=== PATIENT | female | born 1965 | race Caucasian/White ===

== ENCOUNTER 2017-02-26 08:29 | Day surgery (SDC) | payer OTHER ==
--- NOTE | 2017-02-26 08:02 | HP ---
DATE OF SURGERY: 02/16/2017 HISTORY OF PRESENT ILLNESS: The patient is a 52 year-old with no prior colonoscopy with bright red blood per rectum lasted only a few days but not currently. No pain. No change in bowel movements. History of rectal bleeding and she had been in recently but also in need of screening colonoscopy as she has not had one previously. PAST MEDICAL HISTORY: She denies any chronic illnesses. PAST SURGICAL HISTORY: None. MEDICATIONS: None. ALLERGIES: NKDA. FAMILY HISTORY: Cancer but negative for colon cancer in her mother. Her father with diabetes. SOCIAL HISTORY: One pack smoker per week but reports occasional alcohol use denies abuse. REVIEW OF SYSTEMS: Twelve systems reviewed per admission assessment. No chest pain or palpitations other systems negative or noncontributory as above and per preadmission questionnaire. PHYSICAL EXAMINATION: GENERAL: No acute distress. HEENT: Sclerae nonicteric. NECK: No JVD. CHEST: Equal excursion, nonlabored breathing. CVS: Regular rate and rhythm. ABDOMEN: Soft. No peritoneal signs. EXTREMITIES: No significant edema. NEURO: Alert, moving extremities symmetrically. No gross motor deficits noted. RECTAL: Deferred timed to endoscopy exam. IMPRESSION: Need for screening colonoscopy as well as history of transient episode of rectal bleeding. She is in need of colonoscopy. She is shown the risk sheet and explained the procedure in detail but not limited to bleeding, infection, small risk of bowel injury or perforation possibly requiring open procedure, small risk of missed or nondiagnosis or incomplete exam possibly requiring barium enema, other studies or procedures, general risk of anesthesia or sedation but not limited to. She understands all the above but not limited to, and will proceed with outpatient colonoscopy under MAC anesthesia.
[2017-02-26] MEDS ORDERED: Versed 2 MG/2 ML Injection IV ONE (08:30)
[2017-02-26] MEDS ORDERED: DIPRIVAN 200 MG/20 ML IV ONE (08:30)
[2017-02-26] MEDS ORDERED: Lactated Ringers 1,000 ML IV SCH ×2 (09:00→10:00)
[2017-02-26] MEDS ORDERED: Lactated Ringers 1,000 ML IV ONE (10:32)
[2017-02-26 14:11] VITALS: O2SAT 100
[2017-02-26 14:15] VITALS: BP 151/68; PULSE 77
--- NOTE | 2017-02-27 10:13 | OP ---
SURGERY DATE/TIME: 02/26/2017 1006 PREOPERATIVE DIAGNOSIS: Turning 52 next month need screening colonoscopy. Prior history of rectal bleeding resolved. POSTOPERATIVE DIAGNOSES: 1) Sessile smooth polypoid reaction ascending colon, second small raised lesion ascending colon. 2) Small internal and external hemorrhoids. 3) Tortuous colon. 4) Poor right colon prep limiting the exam. PROCEDURES: 1) Colonoscopy to terminal ileum. 2) Retrograde ileoscopy. 3) Hot biopsy small raised lesion ascending colon. 4) Multiple hot biopsies of separate sessile raised lesion polypoid reaction ascending colon with ink spot tattooing of location. Again it was broad base and sessile. It was not safely to completely remove in this endoscopic setting. SURGEON: Dr. iNle Cedeño. ANESTHESIA: MAC. ESTIMATED BLOOD LOSS: Minimal. INDICATIONS: As noted above. Risks and benefits explained in detail but not limited to and consent obtained. DESCRIPTION OF PROCEDURE AND FINDINGS: The patient is taken to the operating room. MAC anesthesia introduced. After official time out and no disagreement with planned procedure, digital rectal exam did not reveal any rectal masses. Video colonoscope inserted and passed up through the colon. It was quite tortuous. Carefully navigating up through the sigmoid, descending and transverse colon. With external pressure and positioning on her back the scope was able to be passed around to the ascending colon, in the cecum and into the terminal ileum. Retrograde ileoscopy was grossly unremarkable. The scope is pulled back. Prep in the right colon was somewhat poor with some liquidy semisolid stool limiting the exam for small lesions. There was a sessile what seemed to be more proximal in the right lower quadrant in the ascending colon lesion on a fold this had a little bit of a polypoid reaction but it was sessile and could not safely be completely all removed. Multiple hot and cold biopsies were taken of this for path. Good hemostasis noted. Given the lesion it was marked with ink spot tattoo to selam the location. Additionally, she had another very vague small raised lesion versus hyperplastic lesion in the more distal ascending colon removed with hot biopsy forceps. Good hemostasis noted. Otherwise the scope was slowly and carefully withdrawn. There were no signs of any other large polyps, masses or obstructing lesions. She did have some small internal and external hemorrhoids with diverticula. The scope is withdrawn. There were no immediate complications. There was no family available to discuss the findings with. It should be noted that the sessile lesion if this is truly adenomatous she might benefit from removing this in surgical fashion but if it is other than adenomatous may need to consider whether worthwhile to short term follow up colonoscopy. Either way the patient tolerated the procedure well. There were no immediate complications. Again, it was marked with ink spot tattooing.
== END 2017-02-26 12:10 | disposition home or self-care (01) ==
LOC: SDC 08:29
PROVIDERS: ATTEND Surgery
PROC: 0DJD8ZZ Inspection of Lower Intestinal Tract, Via Natural or Artificial Opening Endoscopic (ICD-10-PCS; principal; 2017-02-26)
PROC: 0DBK8ZX Excision of Ascending Colon, Via Natural or Artificial Opening Endoscopic, Diagnostic (ICD-10-PCS; 2017-02-26)
PROC: 3E0H8GC Introduction of Other Therapeutic Substance into Lower GI, Via Natural or Artificial Opening Endoscopic (ICD-10-PCS; 2017-02-26)
DX: K63.9 Disease of intestine, unspecified (principal); K64.4 Residual hemorrhoidal skin tags; K64.8 Other hemorrhoids; Q43.8 Other specified congenital malformations of intestine; K92.1 Melena
CPT/HCPCS: 00810; J2250; J2704

== ENCOUNTER 2017-04-16 08:57 | Inpatient (IN) | payer OTHER ==
--- NOTE | 2017-04-16 08:20 | HP ---
DATE OF SURGERY: 04/16/2017 HISTORY OF PRESENT ILLNESS: Large flat polyp ascending colon risk of not be safely completely removed endoscopically given the large flat nature. PAST MEDICAL HISTORY: She denies any chronic illnesses. PAST SURGICAL HISTORY: Colonoscopy in the past, descending colon lesion. She had multiple biopsies taken but it was felt not able to completely safely remove endoscopically. MEDICATIONS: None on a regular basis. ALLERGIES: NKDA. FAMILY HISTORY: Cancer, diabetes. SOCIAL HISTORY: One pack per week smoker, occasional alcohol use denied abuse. REVIEW OF SYSTEMS: Twelve systems reviewed per admission assessment. No chest pain or palpitations other systems negative or noncontributory as above and per preadmission questionnaire. PHYSICAL EXAMINATION: GENERAL: No acute distress. HEENT: Sclerae nonicteric. NECK: No JVD. CHEST: Equal excursion, nonlabored breathing. CVS: Regular rate and rhythm. ABDOMEN: Soft, nontender. No peritoneal signs. EXTREMITIES: No significant edema. NEURO: Alert, oriented, moving extremities symmetrically. No gross motor deficits noted. RECTAL: Exam small internal and external hemorrhoids. No palpable masses on endoscopic exam. IMPRESSION: Large flat polyp ascending colon risk of not be safely completely removed endoscopically given the large flat nature. A couple cold biopsies were taken. The polyp was marked with ink spot tattooing. It was felt it would be safest to remove it surgically. It came back tubular adenomatous on biopsy. It was felt that it would be safest to proceed surgically with surgical resection and the patient preferred this rather than repeated multiple endoscopies. It was felt to be moderately high risk for progression to malignancy over time as it cannot be completely safely removed endoscopically. Therefore I felt the patient would benefit from surgical resection. I felt she is a candidate for laparoscopic assisted possible hand-assist, possible partial colectomy, possible open same day admit. General risk of bleeding or infection, small risk of trocar injury or hernia, small risk of bowel, bladder, ureter or blood vessel injury possibly requiring procedures, risk of aches, pains, burning or numbness, risk of wound complications, hernia or dehiscence, risk of anastomotic complications, bleeding, leaking fistula, abscess formation possibly requiring other procedures, ongoing morbidity, general risk of anesthesia, deep venous thrombosis, pulmonary embolism, pneumonia, postoperative risk of ileus, risk of adhesion or obstruction down the road, general risk of anesthesia, deep venous thrombosis, pulmonary embolism, pneumonia but not limited to. She understands all of the above but not limited to, will proceed with large sessile tubular adenoma that could not be resected or removed endoscopically, possibly benefit from surgical resection, laparoscopic assisted, possible hand-assist partial colectomy, possible open.
[~2017-04-16 08:57] MED LIST: Lactated Ringers 1,000 ML IV ONE; MEFOXIN 2 GM PREMIX** 2 GM/50 ML ML IV SCH; Sensorcaine 0.25% 10 ML ONE
[2017-04-16] MEDS ORDERED: BRIDION 200MG/2ML IV ONE (09:10)
[2017-04-16] MEDS ORDERED: DIPRIVAN 200 MG/20 ML IV ONE (09:10)
[2017-04-16] MEDS ORDERED: Naropin 0.5% 30 ML VIAL IJ ONE (09:10)
[2017-04-16] MEDS ORDERED: Astramorph-Pf 5 MG/10 ML IV ONE (09:10)
[2017-04-16] MEDS ORDERED: Versed 2 MG/2 ML Injection IV ONE (09:10)
[2017-04-16] MEDS ORDERED: EPINEPHRINE 1MG/ML AMP IV ONE (09:10)
[2017-04-16] MEDS ORDERED: Zemuron 100 MG/10 ML IV ONE (09:10)
[2017-04-16] MEDS ORDERED: SUBLIMAZE 250 MCG/5 ML IV ONE (09:10)
[2017-04-16] MEDS ORDERED: Decadron 4 MG INJ IV ONE (09:10)
[2017-04-16] MEDS ORDERED: Zofran 4 MG/2 ML VIAL IV ONE (09:10)
[2017-04-16] MEDS ORDERED: ENTEREG 12 MG PO ONE (09:30)
[2017-04-16] MEDS ORDERED: Valium 5 MG PO PRN (09:30)
[2017-04-16] MEDS ORDERED: Lactated Ringers 1,000 ML IV ONE ×2 (09:49→11:04)
[2017-04-16] MEDS ORDERED: MEFOXIN 2 GM PREMIX** 2 GM/50 ML ML IV ONE (09:49)
[2017-04-16] MEDS: Lactated Ringers 1,000 ML IV SCH ×2 (09:53→11:09)
[2017-04-16 12:15] LABS: Appearance HAZY (CLEAR); Bilirubin NEGATIVE (NEGATIVE); Glucose NEGATIVE (NEGATIVE); Ketones TRACE (NEGATIVE); Leukocyte Esterase TRACE (NEGATIVE); Nitrite NEGATIVE (NEGATIVE); Protein,Urine Dip TRACE (Negative); Urobilinogen NORMAL mg/dL (0-1)
[2017-04-16 12:16] LABS: Blood 250 Ery/ul (0-5)
[2017-04-16 12:30] LABS: Bacteria MODERATE /HPF (NEGATIVE); Epithelial Cells FEW /HPF (FEW); Mucus SLIGHT /HPF (NEGATIVE)
[2017-04-16] MEDS ORDERED: Zofran 4 MG/2 ML VIAL ONE (15:06)
[2017-04-16] MEDS ORDERED: SUBLIMAZE 100 MCG/2 ML ONE (15:06)
[2017-04-16] MEDS ORDERED: DEMEROL 50 MG IV PRN (16:13)
[2017-04-16] MEDS ORDERED: Zofran 4 MG/2 ML VIAL IV PRN (16:13)
[2017-04-16] MEDS ORDERED: Nubain 10 MG/ML IV PRN (16:13)
[2017-04-16] MEDS ORDERED: Narcan 0.4 MG/ML IV PRN (16:13)
[2017-04-16] MEDS ORDERED: PERCOCET TABLET 5/325MG PO PRN (16:13)
[2017-04-16] MEDS ORDERED: Sodium Chloride 0.9% 10 ML FLUSH Syringe IJ PRN (16:13)
[2017-04-16] MEDS ORDERED: CLARITIN 10 MG PO PRN (16:13)
[2017-04-16] MEDS ORDERED: HOLD NARCOTIC ANALGESICS AND SEDATIVES X24 HR MC PRN (16:49)
[2017-04-16] MEDS: D5W/0.45NS W/ 20mEq KCl 1000 ML 1,000 ML IV SCH (17:25)
[2017-04-16] MEDS: MEFOXIN 1 Gm/ D5W 50 Ml** 1 G/50 ML ML IV SCH ×2 (17:26→23:55)
[2017-04-16] MEDS: Sodium Chloride 0.9% 10 ML FLUSH Syringe IJ SCH (22:00)
[2017-04-17] MEDS: MEFOXIN 1 Gm/ D5W 50 Ml** 1 G/50 ML ML IV SCH (05:57)
[2017-04-17] MEDS: Sodium Chloride 0.9% 10 ML FLUSH Syringe IJ SCH ×2 (05:59→18:17)
[2017-04-17 06:00] LABS: Hematocrit 35.8 % (35-47); Hemoglobin 11.7 gm/dl (12.0-16.0); Mean Cell Volume 92.5 fl (78-100); Mean Corpuscular Hemoglobin 30.2 pg (26-32); Mean Corpuscular Hgb Concent. 32.7 g/dl (32-36); Mean Platelet Volume 9.9 fl (6-9.5); Platelet Count 272 K/mm3 (150-450); Red Blood Count 3.87 M/mm3 (4.1-5.4); Red Cell Distribution Width 12.7 % (11.5-14.0); White Blood Count 15.5 K/mm3 (4.0-10.5)
[2017-04-17 06:19] LABS: ANION GAP 10.5 MEQ/L (5-15); BLOOD UREA NITROGEN 7 mg/dL (9-20); CHLORIDE 106 mEq/L (98-107); Calcium 8.4 mg/dL (8.5-10.1); Carbon Dioxide 26.7 mEq/L (21-32); Creatinine 1 0.77 mg/dl (0.55-1.30); EST GLOMERULAR FILTRATION RATE > 60 ML/MIN; Glucose 142 MG/DL (70-110); Potassium 4.5 mEq/L (3.5-5.1); SODIUM 139 mEq/L (136-145)
--- NOTE | 2017-04-17 08:21 | OP ---
SURGERY DATE/TIME: 04/16/2017 1125 PREOPERATIVE DIAGNOSIS: History of flat sessile tubular adenoma ascending colon unable to be safely removed endoscopically, multiple biopsies showing tubular adenoma, need for surgical resection. POSTOPERATIVE DIAGNOSIS: History of sessile tubular adenoma ascending colon unable to be safely removed endoscopically, multiple biopsies showing tubular adenoma, need for surgical resection. PROCEDURE: Laparoscopic assisted right colectomy with primary ileal transverse colic reanastomosis. SURGEON: Dr. Nile Cedeño. BLAST FURNACE TENDER: Jennifer Savage, Medical Student III. ANESTHESIA: General. ESTIMATED BLOOD LOSS: Minimal. INDICATIONS: As noted above. She had this flat sessile polyp that required piecemeal biopsy that was felt could not be safely resected endoscopically and felt it needed surgical resection. She had a short right colon, right colectomy whether dysplasia or malignancy this was felt the safest approach. Risks and benefits explained in detail and not limited to and consent obtained. She was explained the procedure of resection. Risk of progression of malignancy depending on path. Consent had been obtained. DESCRIPTION OF PROCEDURE AND FINDINGS: The patient is taken to the operating room. General anesthesia introduced. Abdomen was prepped and draped in usual sterile fashion. After official time out and no disagreement with planned procedure, a transverse incision made infraumbilical area. Fascia grasped and pulled up. Veress needle inserted and tested with saline. Pneumoperitoneum accomplished. Opening pressure 0 to 15. A 5 mm bladeless port and camera inserted without difficulty followed by right lower quadrant 5 mm port. Left upper 5 mm port. Lower midline 5 mm port. The patient required laparoscopic lysis of adhesions, had several omental adhesions. Otherwise the very extensive omental adhesions that required laparoscopic lysis of adhesions with a combination of sharp dissection with the scissors and LigaSure device sealing the vascular adhesions directly on the abdominal wall well away from the viscera. This allowed the lower midline 5 mm port to be placed. Once this was accomplished she was thin enough the ureter could be visualized on the right pelvic side wall. The peritoneum was carefully incised allowing the terminal ileum to be mobilized upwards with the white line of [place] side is laterally and the right colon was able to be mobilized medially and this took some time but slowly and carefully accomplished staying well away from the visible ureter protecting the retroperitoneum. It was peristalsing quite well. At this point the omentum had also been taken off the transverse colon as there was only a very short segment of right colon. It was felt right colectomy would be the best option. The blue dye was noted. The flap had been marked previously endoscopically to confirm the location. At this point it was felt the colon had been mobilized. The ileocolic vessel created to allow to release the mesentery. There was actually blue dye on the lymph nodes along this ileocolic vessel from prior tattoo. It was felt it was time to proceed with anastomosis. A transverse incision was made in right upper quadrant. Peritoneum entered sharply. Pneumoperitoneum decompressed temporarily. The right colon had been mobilized and pulled up into the wound. The terminal ileum is transected with a STORM stapler. Mesentery taken down ligating with LigaSure ligating the main ileocolic vessel with 0 Vicryl suture ligature allowing the lymph node to be sent as a specimen and this was accomplished. Again as there was a very short right colon segment it was felt there was no benefit just doing ileus. It was felt the chance that if there was any dysplasia or malignancy on this flat polyp it was felt best to go ahead and complete the right colon and there was a little extra colon taken. The STORM stapler is fired across the transverse colon also including the right colic vessel ligating with 0 Vicryl suture ligature this had all been mobilized anterior to the duodenum. Finally the ileocolic vessel taken anterior well away from the retroperitoneal structures taking down the residual mesocolon anterior to duodenum. The specimen is passed off. It was opened on the back table. The area had been tattooed and the flat polyp had several biopsies. A [id number] anastomosis created posterior level to top with PDS, [id number] staple anastomosis created. The wound was closed with chyna to reinforce staple line and this was able to be visualized and over sewn with running 3-0 PDS. Good hemostasis was then noted. A nice tension-free viable anastomosis. The staple line was closed with TA stapler and over sewn with 3-0 PDS. Mesenteric defect then closed with 3-0 PDS. Good hemostasis noted. A nice patent, viable tension-free anastomosis with omentum laid on top. Copious amount of irrigation irrigating until clear. Good hemostasis noted. At this point we carefully inspected the abdominal cavity and irrigated out. Wound protector was then carefully inserted. The abdomen re-insufflated. Carefully inspected the anastomotic area in a tension-free and viable. Copious amount of irrigation irrigating until clear. Lysis of adhesions had been accomplished, inspected and appeared to have good hemostasis. At this point pneumoperitoneum decompressed. Port removed. MICHELLE drain placed along the right gutter placed at bulb suction and secured with PDS suture to the skin through anterior port site. Buttressing up in a tension-free viable anastomosis. The mesenteric defect had been closed. Good hemostasis noted. At this point pneumoperitoneum decompressed. Ports have been removed. MICHELLE drain secured. The fascia small incision was then closed with running looped 0 PDS. Subcu irrigated out. Skin stapled. Little pieces of Iodoform packing the staple line to allow for any drainage. The patient tolerated the procedure well. There were no immediate complications.
[2017-04-17] MEDS: MORPHINE SULFATE 2 MG INJ IV PRN ×3 (08:54→15:19)
[2017-04-17] MEDS: ENTEREG 12 MG PO SCH ×2 (09:21→20:59)
[2017-04-17] MEDS: D5W/0.45NS W/ 20mEq KCl 1000 ML 1,000 ML IV SCH (09:22)
[2017-04-17] MEDS: ENOXAPARIN SODIUM SQ SCH (09:22)
[2017-04-17] MEDS: NORCO 5/325 MG PO PRN ×3 (13:23→22:24)
[2017-04-17] MEDS ORDERED: Zofran 4 MG/2 ML VIAL IVIM PRN (16:00)
[2017-04-18] MEDS: D5W/0.45NS W/ 20mEq KCl 1000 ML 1,000 ML IV SCH ×2 (03:28→18:48)
[2017-04-18] MEDS: NORCO 5/325 MG PO PRN ×3 (10:33→18:48)
[2017-04-18] MEDS: ENOXAPARIN SODIUM SQ SCH (10:34)
[2017-04-18] MEDS: ENTEREG 12 MG PO SCH ×2 (10:36→21:55)
[2017-04-18] MEDS: MORPHINE SULFATE 2 MG INJ IV PRN (13:30)
[2017-04-18] MEDS: PROVENTIL 2.5 MG/3 ML NEB IH PRN (20:20)
[2017-04-19] MEDS: MORPHINE SULFATE 2 MG INJ IV PRN (03:19)
[2017-04-19] MEDS: NORCO 5/325 MG PO PRN ×2 (04:34→13:54)
[2017-04-19] MEDS: PROVENTIL 2.5 MG/3 ML NEB IH PRN (08:01)
[2017-04-19] MEDS: ENOXAPARIN SODIUM SQ SCH (09:55)
[2017-04-19] MEDS: ENTEREG 12 MG PO SCH (09:55)
[2017-04-19 11:27] VITALS: BP 126/73; PULSE 71; O2SAT 94
--- NOTE | 2017-04-30 15:06 | DS ---
ADMISSION DIAGNOSIS: Flat sessile high risk polyp that could not be completely removed endoscopically and needed resection right colon. DISCHARGE DIAGNOSIS: FLAT SESSILE HIGH RISK POLYP THAT COULD NOT BE COMPLETELY REMOVED ENDOSCOPICALLY AND NEEDED RESECTION RIGHT COLON. PATH PENDING. PROCEDURE: Laparoscopic assisted right colectomy with primary reanastomosis. HOSPITAL COURSE: For details see operative note, admission history and physical. The patient was admitted post-operatively for pain control, continued on Entereg protocol. Incision remained clean and intact. Radha were gradually advanced. MICHELLE was clear. Pain control improved. Her bowel function returned. Her diet was advanced. She tolerated diet, moving her bowels. She had good pain control on oral pain medications. It was felt she could be discharged home on 04/19/2017. Discharged home in good condition. Follow up in the office the following week. Avoid any heavy lifting for six weeks. Diet as tolerated. She has a prescription for [facility] for pain medication. She is to resume home medications.
== END 2017-04-19 16:17 | disposition home or self-care (01) | DRG 331 ==
LOC: MED SURG 08:57 → EDSTATUS 14:20
PROVIDERS: ADMIT Surgery; ATTEND Surgery
PROC: 0DBK0ZZ Excision of Ascending Colon, Open Approach (ICD-10-PCS; principal; 2017-04-16)
DX: D12.2 Benign neoplasm of ascending colon (principal); Z86.010 Personal history of colon polyps; Z87.891 Personal history of nicotine dependence
CPT/HCPCS: 00790; 36415; 62322; 64488; 76937; 76942; 80048; 81000; 85027; 87086; 88309; 94640; 94760; J0171; J0694; J1100; J1650; J2250; J2270; J2274; J2405; J2704; J2795; J3010; L0625; A9270-GY

== ENCOUNTER 2019-06-16 09:59 | Day surgery (SDC) | payer OTHER ==
--- NOTE | 2019-06-16 08:14 | HP ---
DATE OF SURGERY: 06/16/2019 HISTORY OF PRESENT ILLNESS: The patient is a 54 year-old with no change in bowel movements, no abdominal pain. She had a little bit of rectal bleeding in the past but not currently. She has history of tubular adenoma and serrated adenomas in the past, in need of follow up screening colonoscopy. PAST MEDICAL HISTORY: She denies any chronic illnesses. PAST SURGICAL HISTORY: She has history of laparoscopic assisted right colectomy with primary transverse colic anastomosis with a large sessile polyp that could not be safely removed endoscopically. MEDICATIONS: None on a regular basis. ALLERGIES: NKDA. FAMILY HISTORY: Cancer, diabetes. SOCIAL HISTORY: No smoking or alcohol abuse. REVIEW OF SYSTEMS: Fourteen systems reviewed. No chest pain or palpitations other systems negative or noncontributory as above and per preadmission questionnaire. PHYSICAL EXAMINATION: GENERAL: No acute distress. HEENT: Sclerae nonicteric. NECK: No JVD. CHEST: Clear to auscultation. CVS: Regular rate and rhythm. ABDOMEN: Soft. No peritoneal signs. EXTREMITIES: No significant edema. NEURO: Alert, oriented, moving extremities symmetrically. No gross motor deficits noted. RECTAL: Deferred timed to endoscopy exam. IMPRESSION: History of large sessile polyp requiring removal surgically. Prior history of tubular adenoma. She is in need of follow up colonoscopy at this point. Risks and benefits explained in detail but not limited to bleeding or infection, risk of bowel injury or perforation possibly requiring open procedure, risk of missed or nondiagnosis or incomplete exam possibly requiring barium enema, other studies or procedures, general risk of anesthesia or sedation, risk of bowel prep but not limited to. She understands and agrees to the planned procedure, will proceed with follow up screening colonoscopy.
[~2019-06-16 09:59] MED LIST changes: -Lactated Ringers 1,000 ML IV ONE; +Lactated Ringers 1,000 ML IV SCH; -MEFOXIN 2 GM PREMIX** 2 GM/50 ML ML IV SCH; -Sensorcaine 0.25% 10 ML ONE
[2019-06-16] MEDS ORDERED: Lactated Ringers 1,000 ML IV SCH (10:30)
[2019-06-16] MEDS ORDERED: DIPRIVAN 200 MG/20 ML IV ONE (10:46)
[2019-06-16] MEDS ORDERED: Ketamine HCl 50 MG/ML ONE (10:46)
[2019-06-16 11:51] VITALS: O2SAT 99
--- NOTE | 2019-06-16 13:08 | OP ---
SURGERY DATE/TIME: 06/16/2019 1047 PREOPERATIVE DIAGNOSIS: History of sessile colon polyps requiring surgical resection in the past, need for follow up colonoscopy. POSTOPERATIVE DIAGNOSES: 1) Small early polyp descending colon and sigmoid colon. 2) Small internal hemorrhoids. 3) Diverticulosis. 4) Patent ileocolonic anastomosis. 5) Adequate bowel prep slightly limited for very small lesions. PROCEDURES: 1) Colonoscopy to ileum with some cold biopsy of mild ileum inflammation versus normal variation of ileum. 2) Cold biopsy small early polyp versus hyperplastic lesion descending colon. 3) Hot biopsy removal of small early polyp versus hyperplastic polyp or hyperplastic lesion sigmoid colon. SURGEON: Dr. Nile Cedeño. ANESTHESIA: MAC. ASA class II. WITHDRAWAL TIME: 7 minutes. ESTIMATED BLOOD LOSS: Minimal. INDICATIONS: As noted above. Risks and benefits explained in detail but not limited to and consent obtained. DESCRIPTION OF PROCEDURE AND FINDINGS: The patient is taken to the operating room. MAC anesthesia introduced. After official time out and no disagreement with planned procedure, digital rectal exam did not reveal any rectal masses. She did have some small internal hemorrhoids. Video colonoscope is passed around transverse colon to the ileum. A little patchy area, whether this is just normal variation of ileum versus a little bit of inflammation, cold biopsies are taken. Otherwise anastomosis widely patent. No signs of any large polyp recurrence in this area. The scope is slowly and carefully withdrawn over the 7 minutes stopping in descending colon removing a small early polyp versus hyperplastic lesion removed with cold biopsy forceps. Another little bit larger one in the sigmoid colon removed with hot biopsy forceps with brief bursts of cautery. Good hemostasis noted. Otherwise, she had some diverticulosis. She did have some small internal hemorrhoids. Prep overall was adequate. There were some areas of liquidy and semisolid stool suction irrigated as clear as possible but did slightly limit the exam for very small lesions. The patient tolerated the procedure well and will see her back in the office in two weeks to go over the results as I will be out of town next week.
[2019-06-16 13:49] VITALS: BP 113/69; PULSE 67
== END 2019-06-16 13:51 | disposition home or self-care (01) ==
LOC: SDC 09:59
PROVIDERS: ATTEND Surgery
DX: Z09 Encounter for follow-up examination after completed treatment for conditions other than malignant neoplasm (principal); Z86.010 Personal history of colon polyps; K64.8 Other hemorrhoids; K57.30 Diverticulosis of large intestine without perforation or abscess without bleeding; K63.5 Polyp of colon
CPT/HCPCS: 88305; J2704

== ENCOUNTER 2020-10-25 08:53 | Day surgery (SDC) | payer OTHER ==
--- NOTE | 2020-10-25 08:16 | HP ---
DATE OF SURGERY: 10/25/2020 HISTORY OF PRESENT ILLNESS: The patient is a 55 year-old with no bloody stools. She has had increased runny stools over the past month. Family history negative for colon cancer, negative for ulcerative colitis. Family history of breast cancer. Colon polyp requiring surgical resection in the past. Given change in bowel habits she is in need of follow up colonoscopy for further evaluation. PAST MEDICAL HISTORY: She denies any chronic illnesses. PAST SURGICAL HISTORY: Colon polyp requiring surgical resection in the past. MEDICATIONS: None on a regular basis currently. ALLERGIES: NKDA. FAMILY HISTORY: Negative in regards to this problem. SOCIAL HISTORY: No alcohol abuse. REVIEW OF SYSTEMS: Fourteen systems reviewed. No chest pain or palpitations other systems negative or noncontributory as above and per preadmission questionnaire. PHYSICAL EXAMINATION: GENERAL: No acute distress. HEENT: Sclerae nonicteric. NECK: No JVD. CHEST: Equal excursion, nonlabored breathing. CVS: Regular rate and rhythm. ABDOMEN: Soft. No peritoneal signs. EXTREMITIES: No significant edema. NEURO: Alert, oriented, moving extremities symmetrically. RECTAL: Deferred timed to endoscopy exam. PSYCH: Appropriate mood and affect. IMPRESSION: Change in bowel habits, history of large sessile polyp requiring surgical resection in the past. I feel she needs follow up colonoscopy for evaluation. Risks and benefits explained in detail including but not limited to bleeding or infection, risk of bowel injury or perforation possibly requiring open procedure, risk of missed or nondiagnosis or incomplete exam possibly requiring barium enema, other studies or procedures, general risk of anesthesia or sedation, risk of bowel prep but not limited to, will proceed with outpatient follow up colonoscopy given her change in bowel movements and history of larger sessile polyp requiring surgical resection in the past.
[2020-10-25] MEDS ORDERED: Lactated Ringers 1,000 ML IV ONE (09:36)
[2020-10-25] MEDS ORDERED: Lactated Ringers 1,000 ML IV SCH (10:00)
[2020-10-25] MEDS ORDERED: DIPRIVAN 200 MG/20 ML IV ONE ×2 (11:21→11:36)
[2020-10-25 12:04] VITALS: O2SAT 100
[2020-10-25 12:19] VITALS: BP 120/79; PULSE 58
--- NOTE | 2020-10-26 10:34 | OP ---
SURGERY DATE/TIME: 10/25/2020 1121 PREOPERATIVE DIAGNOSES: 1) History of large sessile polyp requiring surgical resection in the past. 2) Recent change in bowel habits, need for follow up colonoscopy. POSTOPERATIVE DIAGNOSES: 1) Patent ileocolic anastomotic site. 2) Small early polyps versus hyperplastic lesion rectosigmoid colon x2 in rectum. PROCEDURES: 1) Colonoscopy to terminal ileum. 2) Retrograde ileoscopy. 3) Random ileal biopsies to evaluate for microscopic ileitis, random colon biopsies to evaluate for microscopic colitis. 4) Hot biopsy removal of small retrosigmoid colon early polyps versus hyperplastic lesion x2. 5) Hot biopsy removal of small early polyp versus hyperplastic lesion rectum x1. SURGEON: Dr. Nile Cedeño. ANESTHESIA: MAC. ESTIMATED BLOOD LOSS: Minimal. INDICATIONS: As noted above. Risks and benefits explained in detail but not limited to and consent obtained. DESCRIPTION OF PROCEDURE AND FINDINGS: The patient is taken to the operating room. MAC anesthesia induced. After official time out and no disagreement with planned procedure, digital rectal exam did not reveal any rectal masses. Video colonoscope inserted and passed up through the slightly tortuous sigmoid, descending, transverse and ascending colon down the transverse colon to the ileocolonic anastomotic site. Up into the ileum random cold biopsies taken in the ileum. Retrograde ileoscopy performed. Random cold biopsy taken to the ileum to evaluate for microscopic ileitis. The scope was then slowly and carefully withdrawn. There were no signs of any macroscopic colitis but given her change in bowel habits some random cold biopsies were taken to evaluate for microscopic colitis. Good hemostasis noted. She had a few tiny diverticula in the left colon. She had two small early polyps versus hyperplastic lesions in the rectosigmoid removed with hot biopsy forceps after doing random cold biopsies of the colon. Two small early polyps versus hyperplastic lesion in the rectosigmoid x3 were removed with hot biopsy forceps. Another small early polyp versus hyperplastic lesion in the rectum removed with hot biopsy forceps. Good hemostasis noted. The patient tolerated the procedure well. There were no immediate complications. There was no family here to discuss the findings with in the waiting area.
== END 2020-10-25 12:30 | disposition home or self-care (01) ==
LOC: SDC 08:53
PROVIDERS: ATTEND Surgery
DX: K62.1 Rectal polyp (principal); K63.5 Polyp of colon; R19.4 Change in bowel habit; Z09 Encounter for follow-up examination after completed treatment for conditions other than malignant neoplasm; Z86.010 Personal history of colon polyps; Z80.3 Family history of malignant neoplasm of breast
CPT/HCPCS: 88305; J2704

== ENCOUNTER 2023-12-31 11:48 | Day surgery (SDC) | payer OTHER ==
--- NOTE | 2023-12-31 11:15 | HP ---
PROCEDURE DATE: 12/31/2023 HISTORY OF PRESENT ILLNESS: History of polyps in the past. No bloody stools. No change in bowel habits. No new pain. PAST MEDICAL HISTORY: Denies any chronic illnesses. CURRENT MEDICATIONS: No medications on a regular basis. ALLERGIES: NKDA. PAST SURGICAL HISTORY: She has had X 2. FAMILY HISTORY: Negative for colon cancer. Breast cancer, diabetes. SOCIAL HISTORY: No smoking or alcohol abuse. REVIEW OF SYSTEMS: 12 systems reviewed. No chest pain or palpitations. Other systems negative or noncontributory other than above and per preadmission questionnaire. PHYSICAL EXAMINATION: Height 5', BMI 20.51. GENERAL: No acute distress. HEENT: Sclerae nonicteric. NECK: No JVD. CHEST: Equal excursion. Nonlabored breathing. CVS: Regular rate and rhythm. ABDOMEN: Soft. EXTREMITIES: No significant edema. NEURO: Alert and oriented, moving extremities symmetrically. PSYCH: Appropriate mood and affect. SKIN: Dry. RECTAL: Deferred until time of endoscopy exam. IMPRESSION: HISTORY OF POLYPS. NEED FOR FOLLOW-UP SCREENING COLONOSCOPY. Risks explained in detail, but not limited to, bleeding; infection; risk of bowel injury or perforation; risk of missed or nondiagnosis or incomplete exam possibly requiring barium enema or other studies or referrals; risk of anesthesia or sedation; risk of bowel prep, but not limited to. She understands and agrees to the planned procedure. Will proceed with outpatient colonoscopy with monitored anesthesia care.
[2023-12-31] MEDS ORDERED: Lactated Ringers 1,000 ML IV ONE (12:11)
[2023-12-31] MEDS: Lactated Ringers 1,000 ML IV SCH (12:15)
[2023-12-31] MEDS ORDERED: DIPRIVAN 200 MG/20 ML IV ONE ×2 (13:46→13:59)
[2023-12-31] MEDS ORDERED: Versed 2 MG/2 ML Injection ONE (13:46)
[2023-12-31 14:14] VITALS: RESP 18; TEMP 96.7
[2023-12-31 14:30] VITALS: PULSE 82; O2SAT 100
[2023-12-31 14:32] VITALS: BP 121/82
--- NOTE | 2024-01-01 07:49 | OP ---
SURGERY DATE/TIME: 12/31/2023 [id number] PREOPERATIVE DIAGNOSES: 1) History of polyps. 2) Prior history of resection in the past. 3) ASA class 2. POSTOPERATIVE DIAGNOSES: 1) Small polyps. 2) Prominent small bowel at the ileal transverse colic anastomotic site. PROCEDURES: 1) Colonoscopy to ileum with cold biopsy prominent small bowel at ileocolonic anastomosis site. 2) Hot snare polypectomy sigmoid colon. 3) Biopsy polypectomy rectal polyp. SURGEON: Shawn Cedeño MD. ANESTHESIA: MAC. ASA CLASS: 2. WITHDRAWAL TIME: Around 9 minutes. ESTIMATED BLOOD LOSS: Minimal. INDICATIONS: As above. Consent was obtained. DESCRIPTION OF PROCEDURE AND FINDINGS: Patient taken to the endoscopy room. MAC anesthesia induced after official time-out for planned procedure. Digital rectal exam did not reveal any rectal masses. Videocolonoscope was inserted and passed up through the slightly tortuous sigmoid, descending, transverse, ascending colon, and around to the ileotransverse colonic anastomotic site. One of the portions of small bowel seemed a little bit prominent. Cold biopsies were taken of this area. The scope was then pulled back. There was a polyp, removed with snare polypectomy sigmoid colon and one in the rectum removed with hot biopsy polypectomy. Good hemostasis noted. There was no family to discuss any findings.
== END 2023-12-31 14:38 | disposition home or self-care (01) ==
LOC: SDC 11:48
PROVIDERS: ATTEND Surgery
DX: Z12.11 Encounter for screening for malignant neoplasm of colon (principal); Z09 Encounter for follow-up examination after completed treatment for conditions other than malignant neoplasm; Z86.010 Personal history of colon polyps; Z80.3 Family history of malignant neoplasm of breast; D12.7 Benign neoplasm of rectosigmoid junction
CPT/HCPCS: J2250; J2704